=== PATIENT | female | born 1975 | race African-American/Black ===

== ENCOUNTER → 2017-09-20 | Outpatient (CLI) | payer OTHER ==
[~2017-09-20] MED LIST: ACETAMINOPHEN-1 EAC1; ADVAIR 250/501 DISK IH; AMOXICILLIN500 M1 PO; AMOXICILLIN500 MG; ASPIR-LOW81 MG PO; CYCLOBENZAPRINE5 MG; ENDOCET 5-3251 EACH; IBUPROFEN800 MG; OXYCODONE-APAP1 EACH; PERCOCET 5/31 TABLET PO; PROVENTIL17 GM IH; TYLENOL WITH C1 EACH PO
== END | disposition home or self-care (01) ==
LOC: CDC 09:07
DX: R94.31 Abnormal electrocardiogram [ECG] [EKG] (principal); M79.642 Pain in left hand; M25.531 Pain in right wrist; M79.641 Pain in right hand
CPT/HCPCS: 93000